=== PATIENT | female | born 1975 | race Caucasian/White ===

== ENCOUNTER 2018-11-17 18:01 | Emergency (ER) | payer BC, MEDICAID ==
--- NOTE | 2018-11-17 18:16 | EDM.PDOC ---
<Linda Haines - Last Filed: 11/17/18 18:15> ED HPI GENERAL MEDICAL PROBLEM - General Chief Complaint: Lower Extremity Injury/Pain Stated Complaint: BLOOD CLOT ON LEG Time Seen by Provider: 11/17/18 18:17 - Related Data Allergies Allergy/AdvReac Type Severity Reaction Status Date / Time ceftriaxone [From Rocephin] Allergy Hives Verified 11/17/18 18:14 Penicillins Allergy Hives Verified 11/17/18 18:14 Sulfa (Sulfonamide Allergy Hives Verified 11/17/18 18:14 Antibiotics) Home Meds: Home Meds Apixaban [Eliquis] 5 mg PO BID 11/17/18 [History] Docusate Sodium [Doc-Q-Lace] 100 mg PO DAILY 11/17/18 [History] Gabapentin [Neurontin] 600 mg PO TID 11/17/18 [History] Pantoprazole Sodium [Protonix] 20 mg PO DAILY 11/17/18 [History] QUEtiapine Fumarate [Seroquel] 900 mg PO DAILY 11/17/18 [History] Course - Vital Signs Last Recorded V/S: Last Vital Signs Temp 97.0 F 11/17/18 18:18 Pulse 88 11/17/18 18:18 Resp 18 11/17/18 18:18 BP 116/75 11/17/18 18:18 Pulse Ox 98 11/17/18 18:18 Departure - Departure Disposition: Home, Self-Care 01 Clinical Impression: DVT (deep venous thrombosis) - Discharge Information Referrals: PCP,None [Primary Care Provider] - Forms: ED Department Discharge Additional Instructions: The following information is given to patients seen in the emergency department who are being discharged to home. This information is to outline your options for follow-up care. We provide all patients seen in our emergency department with a follow-up referral. The need for follow-up, as well as the timing and circumstances, are variable depending upon the specifics of your emergency department visit. If you don't have a primary care physician on staff, we will provide you with a referral. We always advise you to contact your personal physician following an emergency department visit to inform them of the circumstance of the visit and for follow-up with them and/or the need for any referrals to a consulting specialist. The emergency department will also refer you to a specialist when appropriate. This referral assures that you have the opportunity for follow-up care with a specialist. All of these measure are taken in an effort to provide you with optimal care, which includes your follow-up. Under all circumstances we always encourage you to contact your private physician who remains a resource for coordinating your care. When calling for follow-up care, please make the office aware that this follow-up is from your recent emergency room visit. If for any reason you are refused follow-up, please contact the [facility] Emergency Department at and asked to speak to the emergency department charge nurse. [facility] [address] [place] [address] [facility] [address] [place] [id number] 1. Take Eliquis 10mg twice daily x 1 week then resume 5mg twice daily 2. Follow up with primary care provider 3. Return to ED as needed as discussed <Rachel Chavez - Last Filed: 11/17/18 22:14> ED HPI GENERAL MEDICAL PROBLEM - General Source of Information: Reports: Patient History Limitations: Reports: No Limitations - History of Present Illness INITIAL COMMENTS - FREE TEXT/NARRATIVE: HISTORY AND PHYSICAL: History of present illness: Patient is a 43-year-old female presents to ED with complaint of blood clot. She states she has a history of blood clots, she has been on anticoagulants for 2 years. She states she was out of her Eliquis for 1 week, just started taking it again yesterday. She reports her left calf has been swollen and painful x 4 days and not getting better which prompted her to come to the ED. She denies chest pain, shortness of breath, cough, fevers, chills. She denies recent injury and no travel. She is a smoker. Review of systems: As per history of present illness and below otherwise all systems reviewed and negative. Past medical history: As per history of present illness and as reviewed below otherwise noncontributory. Surgical history: As per history of present illness and as reviewed below otherwise noncontributory. Social history: No reported history of drug or alcohol abuse. Family history: As per history of present illness and as reviewed below otherwise noncontributory. Physical exam: General: Patient sitting comfortably in no acute distress and nontoxic appearing HEENT: Atraumatic, normocephalic, pupils reactive, negative for conjunctival pallor or scleral icterus, mucous membranes moist, throat clear, neck supple, nontender, trachea midline. No meningeal signs. Lungs: Clear to auscultation, breath sounds equal bilaterally, chest nontender. Heart: S1S2, regular, negative for clicks, rubs, or overt murmur. Abdomen: Soft, nondistended, nontender. Negative for masses or hepatosplenomegaly. Negative for costovertebral tenderness. No rigidity, rebound , guarding. Pelvis: Stable nontender. Genitourinary: Deferred. Rectal: Deferred. Extremities: Left calf is significantly swollen. There is an erythematous area just below the left medial knee that measures 5x3cm that is warm to touch. No open skin. No pain with ROM of knee. Atraumatic, negative for cords or calf pain. Neurovascular unremarkable. Neuro: Awake, alert, oriented. Cranial nerves II through XII unremarkable. Cerebellum unremarkable. Motor and sensory unremarkable throughout. Exam nonfocal. Notes: Diagnostics: Venous doppler US Therapeutics: None Prescriptions: Eliquis Impression: DVT Plan: 1. Take Eliquis 10mg twice daily x 1 week then resume 5mg twice daily 2. Follow up with primary care provider 3. Return to ED as needed as discussed Definitive disposition and diagnosis as appropriate pending reevaluation and review of above. Left Lower Leg Pain Score (Numeric/FACES): 2 Review of Systems - Review of Systems Review Of Systems: ROS reveals no pertinent complaints other than HPI. ED EXAM, GENERAL - Physical Exam Exam: See Below (see dictation) Course - Vital Signs Last Recorded V/S: Last Vital Signs Temp 97.0 F 11/17/18 18:18 Pulse 88 11/17/18 18:18 Resp 18 11/17/18 18:18 BP 116/75 11/17/18 18:18 Pulse Ox 98 11/17/18 18:18 Departure - Departure Time of Disposition: 22:13 Condition: Good
--- NOTE | 2018-11-17 22:02 | US ---
INDICATION: Lower extremity swelling and pain, history of DVT TECHNIQUE: Ultrasound venous duplex lower left extremity. Compression venous exam was performed using santo-scale, color Doppler, and spectral Doppler analysis. COMPARISON: None FINDINGS: Sonographic imaging demonstrates the left common femoral, deep femoral, superficial veins to be fully compressible with normal color Doppler blood flow. The posterior tibial and peroneal veins are not visualized due to adjacent edema. Nonocclusive partially compressible thrombus identified in the left popliteal vein. Noncompressible thrombus identified in the distal left greater saphenous vein. IMPRESSION: Nonocclusive partially compressible thrombus identified in the left popliteal vein. No prior exams for comparison. Noncompressible thrombus identified in the distal left greater saphenous vein. Dictated by Marcos Hoffman MD @ 11/17/2018 10:01:50 PM Dictated by: Marcos Hoffman MD @ 11/17/2018 22:01:54 (Electronically Signed)
== END 2018-11-17 22:20 | disposition home or self-care (01) ==
LOC: MW.ED 18:01
DX: I82.432 Acute embolism and thrombosis of left popliteal vein (principal); I82.812 Embolism and thrombosis of superficial veins of left lower extremity; Z79.01 Long term (current) use of anticoagulants; Z79.899 Other long term (current) drug therapy; Z88.0 Allergy status to penicillin; Z88.1 Allergy status to other antibiotic agents; Z88.2 Allergy status to sulfonamides
CPT/HCPCS: 93971-26-LT; 93971-LT; 99283-25

== ENCOUNTER 2019-03-25 22:00 | Emergency (ER) | payer MEDICAID ==
--- NOTE | 2019-03-25 22:04 | EDM.PDOC ---
ED HPI GENERAL MEDICAL PROBLEM - General Stated Complaint: MED. CLEARENCE Time Seen by Provider: 03/25/19 22:02 - History of Present Illness INITIAL COMMENTS - FREE TEXT/NARRATIVE: HISTORY AND PHYSICAL: History of present illness: Patient is a 44-year-old female presents in custody of law enforcement who presents for medical clearance with no complaints Review of systems: As per history of present illness and below otherwise all systems reviewed and negative. Past medical history: As per history of present illness and as reviewed below otherwise noncontributory. Surgical history: As per history of present illness and as reviewed below otherwise noncontributory. Social history: No reported history of drug or alcohol abuse. Family history: As per history of present illness and as reviewed below otherwise noncontributory. Physical exam: HEENT: Atraumatic, normocephalic, pupils reactive, negative for conjunctival pallor or scleral icterus, mucous membranes moist, throat clear, neck supple, nontender, trachea midline. Lungs: Clear to auscultation, breath sounds equal bilaterally, chest nontender. Heart: S1S2, regular, negative for clicks, rubs, or JVD. Abdomen: Soft, nondistended, nontender. Negative for masses or hepatosplenomegaly. Negative for costovertebral tenderness. Pelvis: Stable nontender. Genitourinary: Deferred. Rectal: Deferred. Extremities: Atraumatic, negative for cords or calf pain. Neurovascular unremarkable. Neuro: Awake, alert, oriented. Cranial nerves II through XII unremarkable. Cerebellum unremarkable. Motor and sensory unremarkable throughout. Exam nonfocal. Diagnostics: None Therapeutics: None Impression: #1 medical clearance for incarceration Definitive disposition and diagnosis as appropriate pending reevaluation and review of above. - Related Data Allergies Allergy/AdvReac Type Severity Reaction Status Date / Time ceftriaxone [From Rocephin] Allergy Hives Verified 11/17/18 18:14 Penicillins Allergy Hives Verified 11/17/18 18:14 Sulfa (Sulfonamide Allergy Hives Verified 11/17/18 18:14 Antibiotics) Home Meds: Home Meds Apixaban [Eliquis] 5 mg PO BID 11/17/18 [History] Docusate Sodium [Doc-Q-Lace] 100 mg PO DAILY 11/17/18 [History] Gabapentin [Neurontin] 600 mg PO TID 11/17/18 [History] Pantoprazole Sodium [Protonix] 20 mg PO DAILY 11/17/18 [History] QUEtiapine Fumarate [Seroquel] 900 mg PO DAILY 11/17/18 [History] Past Medical History Cardiovascular History: Reports: Blood Clots/VTE/DVT Psychiatric History: Reports: Schizophrenia - Infectious Disease History Infectious Disease History: Reports: Chicken Pox - Past Surgical History HEENT Surgical History: Reports: Tonsillectomy GI Surgical History: Reports: Cholecystectomy Female Surgical History: Reports: Section Social & Family History - Family History Family Medical History: Noncontributory - Caffeine Use Caffeine Use: Reports: None ED ROS GENERAL - Review of Systems Review Of Systems: Comprehensive ROS is negative, except as noted in HPI. ED EXAM, GENERAL - Physical Exam Exam: See Below (See dictation) Departure - Departure Time of Disposition: 22:03 Disposition: Home, Self-Care 01 Condition: Good Clinical Impression: Medical clearance for incarceration - Discharge Information Additional Instructions: The following information is given to patients seen in the emergency department who are being discharged to home. This information is to outline your options for follow-up care. We provide all patients seen in our emergency department with a follow-up referral. The need for follow-up, as well as the timing and circumstances, are variable depending upon the specifics of your emergency department visit. If you don't have a primary care physician on staff, we will provide you with a referral. We always advise you to contact your personal physician following an emergency department visit to inform them of the circumstance of the visit and for follow-up with them and/or the need for any referrals to a consulting specialist. The emergency department will also refer you to a specialist when appropriate. This referral assures that you have the opportunity for followup care with a specialist. All of these measure are taken in an effort to provide you with optimal care, which includes your followup. Under all circumstances we always encourage you to contact your private physician who remains a resource for coordinating your care. When calling for followup care, please make the office aware that this follow-up is from your recent emergency room visit. If for any reason you are refused follow-up, please contact the [facility] emergency department at and asked to speak to the emergency department charge nurse. Follow-up primary medical doctor as needed as discussed return as needed as discussed
== END 2019-03-25 22:20 | disposition home or self-care (01) ==
LOC: MW.ED 22:00
DX: Z02.89 Encounter for other administrative examinations (principal); F20.9 Schizophrenia, unspecified; Z86.718 Personal history of other venous thrombosis and embolism; Z88.0 Allergy status to penicillin; Z88.2 Allergy status to sulfonamides; Z88.1 Allergy status to other antibiotic agents; Z79.01 Long term (current) use of anticoagulants; Z79.899 Other long term (current) drug therapy
CPT/HCPCS: 99282